=== PATIENT | female | born 1960 ===

== ENCOUNTER 2017-11-02 21:30 | Emergency (ER) | payer MEDICAID, OTHER ==
[2017-11-03] MEDS ORDERED: Promethazine/Cod 6.25mg-10mg/5ml Syr UD PO STA (00:50)
[2017-11-03] MEDS ORDERED: Sodium Chloride 0.9% 1,000 ML IV STA (00:50)
[2017-11-03 01:40] LABS: BASO # 0.1 K/uL (0.0-0.2); BASO % 0.8 % (0.0-2.0); EOS # 0.1 K/uL (0.0-0.7); EOS % 1.5 % (0.0-4.0); LYMPH # 1.2 K/uL (1.0-4.3); MEAN CORPUSCULAR HEMOGLOBIN 28.3 pg (27.0-31.0); MEAN CORPUSCULAR HGB CONC 33.6 g/dL (33.0-37.0); MEAN PLATELET VOLUME 7.5 fl (7.2-11.7); MONO # 1.1 K/uL (0.0-0.8); MONO % 17.5 % (0.0-10.0); NEUT # 3.7 K/uL (1.8-7.0); NEUT % 60.2 % (50.0-75.0); NRBC % 0.2 % (0.0-0.0); RBC 4.23 Mil/uL (3.80-5.20); RED CELL DISTRIBUTION WIDTH 13.5 % (11.5-14.5); WHITE BLOOD COUNT 6.2 K/uL (4.8-10.8)
[2017-11-03] MEDS ORDERED: Promethazine/Cod 6.25mg-10mg/5ml Syr UD ONE (01:41)
[2017-11-03 01:48] LABS: ALB/GLOB RATIO 1.1 (1.0-2.1); ALBUMIN 4.2 g/dL (3.5-5.0); ALT/SGPT 33 U/L (9-52); AST/SGOT 34 U/L (14-36); BLOOD UREA NITROGEN 13 mg/dl (7-17); GFR AFRICAN-AMERICAN > 60; GFR NON-AFRICAN AMERICAN > 60
--- NOTE | 2017-11-03 02:10 | ED PDOC ---
HPI: General Adult Time Seen by Provider: 11/03/17 00:12 Chief Complaint (Nursing): Flu-like Symptoms Chief Complaint (Provider): Flu-like Symptoms History Per: Patient History/Exam Limitations: no limitations Onset/Duration Of Symptoms: Days (x 1 week ) Current Symptoms Are (Timing): Still Present Additional Complaint(s): 57 year old female presents to the ED complaining of flu like symptoms, onset 1 week ago. She reports a worsening headache, body aches, fever, productive cough generalized weakness and vomiting. Denies diarrhea. PMD: Dr. Madison Past Medical History Reviewed: Historical Data, Nursing Documentation, Vital Signs Vital Signs: Last Vital Signs Temp 98.8 F 11/03/17 03:21 Pulse 82 11/03/17 03:21 Resp 17 11/03/17 03:21 BP 131/75 11/03/17 03:21 Pulse Ox 99 11/03/17 03:21 - Medical History PMH: Asthma, Diverticulitis, Gall Bladder Disease Denies: Chronic Kidney Disease - Surgical History Surgical History: Cholecystectomy, Tonsillectomy - Family History Family History: States: Unknown Family Hx - Immunization History Hx Tetanus Toxoid Vaccination: No Hx Influenza Vaccination: No Hx Pneumococcal Vaccination: No - Home Medications Home Medications: Ambulatory Orders Medication Instructions Recorded Benzonatate [Tessalon Perle] 100 mg PO TID PRN #15 capsule 11/03/17 - Allergies Allergies/Adverse Reactions: Allergies Allergy/AdvReac Type Severity Reaction Status Date / Time No Known Allergies Allergy Verified 03/02/17 19:33 Review of Systems ROS Statement: Except As Marked, All Systems Reviewed And Found Negative Constitutional: Positive for: Fever, Weakness, Other (body aches) ENT: Positive for: Nose Discharge Respiratory: Positive for: Cough (productive) Gastrointestinal: Positive for: Vomiting. Negative for: Diarrhea Neurological: Positive for: Headache (worsening) Physical Exam - Reviewed Nursing Documentation Reviewed: Yes Vital Signs Reviewed: Yes - Physical Exam Appears: Positive for: Non-toxic, No Acute Distress, Uncomfortable Head Exam: Positive for: ATRAUMATIC, NORMOCEPHALIC Skin: Positive for: Normal Color, Warm, Dry Eye Exam: Positive for: EOMI, Normal appearance, PERRL ENT: Positive for: Nasal Congestion, Other (dry mucous membranes) Neck: Positive for: Normal, Painless ROM, Supple Cardiovascular/Chest: Positive for: Regular Rate, Rhythm. Negative for: Murmur Respiratory: Positive for: Normal Breath Sounds. Negative for: Respiratory Distress - Laboratory Results Result Diagrams: 11/03/17 01:36 11/03/17 01:36 - ECG O2 Sat by Pulse Oximetry: 97 (RA) Pulse Ox Interpretation: Normal Medical Decision Making Medical Decision Makin:49 Impression: 57 y/ o flu like symptoms Initial Plan: --CMP --Urine preg --Urine preg --CBC --Codeine oral syrup 10 ml PO --Toradol 10 mg IVP --Blood cx --Influenza AB --Urinalysis Labs reviewed no clinically sig abnormalities with exception of positive flu Patient not in window for tx with Tamiflu. will discharge on anti-tussive Dx Influenza Stable Scribe Attestation: Documented by Katarina Bull, acting as a scribe for Ganesh Castro MD. Provider Scribe Attestation: All medical record entries made by the Scribe were at my direction and personally dictated by me. I have reviewed the chart and agree that the record accurately reflects my personal performance of the history, physical exam, medical decision making, and the department course for this patient. I have also personally directed, reviewed, and agree with the discharge instructions and disposition. Disposition - Clinical Impression Clinical Impression: Influenza - Disposition Referrals: Raúl Madison Jr., MD [Primary Care Provider] - Disposition Time: 02:00 Condition: STABLE Prescriptions: Benzonatate [Tessalon Perle] 100 mg PO TID PRN #15 capsule PRN Reason: Cough Instructions: Influenza (ED) Forms: [employer] (Azeri) Print Language: TAJIK
[2017-11-03 03:22] VITALS: BP 131/75; PULSE 82; RESP 17; TEMP 98.8
--- NOTE | 2017-11-03 10:51 | RAD ---
HISTORY: fever COMPARISON: No prior. TECHNIQUE: Chest PA and lateral FINDINGS: LUNGS: No active pulmonary disease. PLEURA: No significant pleural effusion identified. No pneumothorax apparent. CARDIOVASCULAR: Normal. OSSEOUS STRUCTURES: Mild degenerative changes. VISUALIZED UPPER ABDOMEN: Right upper quadrant surgical clips. OTHER FINDINGS: None. IMPRESSION: No active disease.
[2017-11-04 03:35] VITALS: O2SAT 97
== END 2017-11-03 03:11 | disposition home or self-care (01) ==
LOC: H.ER 21:30
DX: J11.1 Influenza due to unidentified influenza virus with other respiratory manifestations (principal); J45.909 Unspecified asthma, uncomplicated
CPT/HCPCS: 71046; 80053; 85025; 87040; 87804; 96361; 96374; 99283; J1885; J7040